=== PATIENT | male | born 1985 | race Caucasian/White ===

== ENCOUNTER 2020-07-06 13:16 | Emergency (ER) | payer OTHER ==
[2020-07-06] MEDS ORDERED: KETOROLAC 30 MG/ML VIAL IVP STA (13:34)
--- NOTE | 2020-07-06 13:35 | ED Physician Documentation ---
PD HPI ABD PAIN - Stated complaint Stated Complaint: BACK PX - Chief complaint Chief Complaint: Abd Pain - History obtained from History obtained from: Patient - Additional information Additional information: Previously healthy 35-year-old gentleman has had 5 days of left flank pain radiating to the left abdomen. It might be mildly worse with movement but not profoundly so. It is associated with urinary frequency without gross hematuria. No history of prior similar issues. No nausea, shortness of breath, fever, cough. Review of Systems Ten Systems: 10 systems reviewed and negative Constitutional: denies: Fever, Chills GI: denies: Nausea, Vomiting, Constipation, Diarrhea : reports: Frequency PD PAST MEDICAL HISTORY - Present Medications Home Medications: Ambulatory Orders Medication Instructions Recorded Confirmed HYDROcod/ACETAM 5/325 [[place] 5/325] 1 - 2 tab PO Q6H PRN #15 tablet 07/06/20 - Allergies Allergies/Adverse Reactions: Allergies Allergy/AdvReac Type Severity Reaction Status Date / Time No Known Drug Allergies Allergy Verified 07/06/20 13:25 PD ED PE NORMAL - Vitals Vital signs reviewed: Yes - General General: Alert and oriented X 3, No acute distress - HEENT HEENT: PERRL, EOMI - Neck Neck: Supple, no meningeal sign, No bony TTP - Cardiac Cardiac: RRR, No murmur - Respiratory Respiratory: No respiratory distress, Clear bilaterally - Abdomen Abdomen: Normal bowel sounds, Soft, Non tender - Back Back: No CVA TTP, No spinal TTP - Extremities Extremities: No edema, No calf tenderness / cord - Neuro Neuro: Alert and oriented X 3, Normal speech Results - Vitals Vitals: Vital Signs - 24 hr 07/06/20 13:23 Temperature 36.8 C Heart Rate 56 L Respiratory 16 Rate Blood Pressure 138/77 H O2 Saturation 98 Oxygen O2 Source Room air - Labs Labs: Laboratory Tests 07/06/20 07/06/20 07/06/20 13:28 13:45 13:45 WBC 6.0 RBC 5.14 Hgb 15.8 Hct 46.1 MCV 89.7 MCH 30.7 MCHC 34.3 RDW 11.9 L Plt Count 273 MPV 10.4 Neut # (Auto) 2.9 Lymph # (Auto) 2.0 Gulf # (Auto) 0.6 Eos # (Auto) 0.5 Baso # (Auto) 0.0 Absolute Nucleated RBC 0.00 Nucleated RBC % 0.0 Sodium 137 Potassium 3.8 Chloride 103 Carbon Dioxide 27 Anion Gap 7.0 BUN 14 Creatinine 0.8 Estimated GFR (MDRD) 109 Glucose 113 H Calcium 9.4 Total Bilirubin 1.7 H AST 23 ALT 26 Alkaline Phosphatase 51 Total Protein 7.3 Albumin 4.6 Globulin 2.7 Albumin/Globulin Ratio 1.7 Lipase 34 Urine Color YELLOW Urine Clarity CLEAR Urine pH 7.0 Ur Specific [place] 1.015 Urine Protein NEGATIVE Urine Glucose (UA) NEGATIVE Urine Ketones NEGATIVE Urine Occult Blood NEGATIVE Urine Nitrite NEGATIVE Urine Bilirubin NEGATIVE Urine Urobilinogen 0.2 (NORMAL) Ur Leukocyte Esterase NEGATIVE Ur Microscopic Review NOT INDICATED Urine Culture Comments NOT INDICATED PD MEDICAL DECISION MAKING - ED course ED course: 35-year-old gentleman presents with 5 days of flank pain. Exam is normal and he generally appears comfortable. CT showed 3 mm nonobstructing stone in the right kidney but a large cystic structure next to the bladder on the left which will require further work-up. Lab work is unremarkable. Departure - Departure Disposition: 01 Home, Self Care Clinical Impression: Flank pain, Abnormal CAT scan Condition: Good Record reviewed to determine appropriate education?: Yes Prescriptions: HYDROcod/ACETAM 5/325 [[place] 5/325] 1 - 2 tab PO Q6H PRN #15 tablet PRN Reason: Pain Comments: As discussed you definitely have an abnormal CT and you need further work-up. 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 Return for new or worsening symptoms. I am prescribing a short course of narcotic pain medication for you. These are potentially dangerous and addictive medications that should be used carefully. These medications may constipate you. Take an kbvq-lwc-yhigkty stool softener (docusate) twice daily with plenty of water while taking these medications. If you go 24 hours without a bowel movement, take [id number]-aguefjv miralax, per package instructions. Do not drink or drive while taking these medications. If you received narcotic or sedating medications while in the emergency department, do not drive for 24 hours. Store this medication in a safe, secure place and out of reach of children. It is a violation of federal law to give or sell this medication to another person or to use in a manner other than prescribed. The ED will not refill narcotic prescriptions, including prescriptions lost or stolen. To dispose of unwanted medications: 1. [facility] at [address] in [facility] has a medication drop box. They accept prescription medications (in pill form) Thursday through Thursday 9:00 a.m. to 5:00 p.m. 2. The [facility] accepts prescription medications (in pill form only) for disposal year round. Call for more information. 3. Contact the [facility] for the next [facility] sponsored prescription drug collection event. , [phone], or [phone]; Note that many narcotic pain relievers also contain Tylenol/acetaminophen. Please ensure that your total dose of acetaminophen from all sources does not exceed 3 g (3000 mg) per day.
[2020-07-06 13:39] LABS: BILIRUBIN,URINE NEGATIVE (NEGATIVE); GLUCOSE, URINE (UA) NEGATIVE (NEGATIVE); KETONES,URINE (UA) NEGATIVE (NEGATIVE); LEUKOCYTE ESTERASE, URINE NEGATIVE (NEGATIVE); NITRITE,URINE NEGATIVE (NEGATIVE); OCCULT BLOOD,URINE NEGATIVE (NEGATIVE); PROTEIN,URINE NEGATIVE (NEGATIVE); UROBILINOGEN,URINE 0.2 (NORMAL) E.U./dL (NORMAL)
[2020-07-06 13:40] LABS: CLARITY,URINE CLEAR (CLEAR)
[2020-07-06 13:49] LABS: BASOPHILS % (AUTO) 0.7 %; EOSINOPHILS # (AUTO) 0.5 10^3/uL (0.0-0.7); EOSINOPHILS % (AUTO) 7.7 %; HCT - HEMATOCRIT 46.1 % (42.0-52.0); HGB - HEMOGLOBIN 15.8 g/dL (14.0-18.0); LYMPHOCYTES % (AUTO) 33.1 %; MEAN CORPUSCULAR HEMOGLOBIN 30.7 pg (27.0-31.0); MEAN CORPUSCULAR HGB CONC 34.3 g/dL (32.0-36.0); MEAN CORPUSCULAR VOLUME 89.7 fL (80.0-94.0); MEAN PLATELET VOLUME 10.4 fL (7.4-11.4); MONOCYTES # (AUTO) 0.6 10^3/uL (0.0-1.0); MONOCYTES % (AUTO) 9.8 %; NEUTROPHILS # (AUTO) 2.9 10^3/uL (1.5-6.6); NEUTROPHILS % (AUTO) 48.5 %; PLT - PLATELET COUNT 273 10^3/uL (130-450); RED BLOOD COUNT 5.14 10^6/uL (4.70-6.10); RED CELL DISTRIBUTION WIDTH 11.9 % (12.0-15.0)
[2020-07-06 14:10] LABS: ALBUMIN 4.6 g/dL (3.2-5.5); ALBUMIN/GLOBULIN RATIO 1.7 (1.0-2.2); BILIRUBIN,TOTAL 1.7 mg/dL (0.2-1.0); CALCIUM 9.4 mg/dL (8.5-10.3); CREATININE 0.8 mg/dL (0.6-1.2); POTASSIUM 3.8 mmol/L (3.5-5.0); TOTAL PROTEIN 7.3 g/dL (6.7-8.2)
--- NOTE | 2020-07-06 14:11 | CT Report ---
PROCEDURE: Abdomen/Pelvis WO INDICATIONS: l flank pain TECHNIQUE: Noncontrast 5 mm thick sections acquired from the diaphragms to the symphysis. 5 mm coronal and sagi ttal reformats were then performed. For radiation dose reduction, the following was used: automated exposure control, adjustment of mA and/or kV according to patient size. COMPARISON: None. FINDINGS: Image quality: Excellent. ABDOMEN: Lung bases: Lung bases are clear. Heart size is normal. Solid organs: Liver and spleen are normal in size. Gallbladder is contracted and shows no gross abn ormality. Pancreas is normal in contours. No adrenal nodules. Kidneys are normal in size. 3 mm non obstructing stone in mid pole of right kidney is seen. No hydronephrosis or perinephric fat stranding . Bilateral ureters are within normal limits. Peritoneum and bowel: Unenhanced bowel loops demonstra te normal wall thickness and caliber. No free fluid or air. Nodes and vessels: No retroperitoneal or mesenteric adenopathy by size criteria. Aorta and inferior vena cava are normal in caliber. Appendix is not definitively identified. No inflammatory changes a re seen in right lower quadrant abdomen. Miscellaneous: No ventral hernias. PELVIS: Genitourinary: There is mild diffuse bladder wall thickening, no discrete bladder wall mass. 5.7 x 5 x 6.3 cm cystic structure is seen adjacent to left posterior-lateral aspect of urinary bladder in lef t pelvis with possible communication with adjacent bladder and may represent a bladder diverticulum. No calcified bladder stone is seen. Miscellaneous: No inguinal hernias or adenopathy. Bones: No suspicious bony lesions. No vertebral body compression fractures. IMPRESSION: 1. 3 mm nonobstructing stone seen in mid pole right kidney. No hydronephrosis. Normal-appearing bilat eral ureters. No left-sided renal stone. 2. Mild diffuse bladder wall thickening, no discrete bladder wall mass. Low-grade cystitis cannot be excluded. 5.7 x 5 x 6.3 cm cystic structure adjacent to left posterior lateral bladder wall with poss ible communication with the bladder lumen suggestive of bladder diverticulum. Cystic neoplasm cannot be entirely excluded. Urological correlation is recommended. 3. No bowel obstruction. No abnormal bowel wall thickening. No free fluid or free air. No evidence of acute appendicitis. Reviewed by: Klever Miller MD on 07/06/2020 2:10 PM PDT Approved by: Klever Miller MD on 07/06/2020 2:10 PM PDT Station ID: [id number]
[2020-07-06 14:36] VITALS: BP 143/81
== END 2020-07-06 14:55 | disposition home or self-care (01) ==
LOC: ED 13:16
DX: R10.9 Unspecified abdominal pain (principal); N20.0 Calculus of kidney; R93.41 Abnormal radiologic findings on diagnostic imaging of renal pelvis, ureter, or bladder
CPT/HCPCS: 36415; 80053; 81001; 81003; 83690; 85025; 87086; 96374; 99284

== ENCOUNTER 2021-04-09 08:00 | Outpatient (CLI) | payer OTHER | END 2021-04-09 23:59 | LOC: LAB.N 08:00 | PROVIDERS: ATTEND Family Medicine | DX: L03.317 Cellulitis of buttock (principal) | CPT/HCPCS: 87070; 87181; 87205 ==